=== PATIENT | male | born 1990 | race Two or more races ===

== ENCOUNTER 2022-03-23 22:55 | Emergency (ER) | payer OTHER ==
[~2022-03-23] VITALS: Ht 190.5 cm; Wt 97.7 kg
[2022-03-23 23:11] VITALS: BP 108/77
[2022-03-24] MEDS ORDERED: ONDANSETRON ODT 4 MG TAB PO ONE (04:00)
[2022-03-24] MEDS ORDERED: HYDROcodone-ACET 5/325MG TAB PO ONE (04:00)
== END 2022-03-24 04:33 | disposition home or self-care (01) ==
LOC: ER 22:55
DX: M25.531 Pain in right wrist (principal)
CPT/HCPCS: 73090; 73100; 99284; Q0162